=== PATIENT | female | born 1940 | race Caucasian/White ===

== ENCOUNTER 2017-05-06 07:10 | Day surgery (SDC) | payer MEDICARE, BC ==
[~2017-05-06 07:10] MED LIST: Midazolam 1 MG/ML 2 ML SDV ONE; Propofol 200 MG/20 ML SDV ONE; fentaNYL 100 MCG/2 ML SDV ONE
[2017-05-06] MEDS ORDERED: ceFAZolin 2 GM in Sodium Chloride 0.9% 50 ML IV ONE (07:15)
[2017-05-06] MEDS ORDERED: Bupivacaine 0.5% 50 ML MDV ONE (07:22)
[2017-05-06] MEDS ORDERED: Lidocaine 1% with EPINEPHrine 1:100,000 50 ML MDV ONE (07:22)
[2017-05-06] MEDS ORDERED: Dextrose 5%-Lactated Ringers 1,000 ML IV SCH (07:30)
[2017-05-06] MEDS ORDERED: ceFAZolin 2 GM in Sodium Chloride 0.9% 100 ML IV ONE (08:15)
[2017-05-06 11:13] VITALS: BP 131/79
[2017-05-06] MEDS ORDERED: Linezolid 200 MG/100 ML Bag IRR ONE (11:51)
--- NOTE | 2017-05-07 15:15 | OR ---
DATE OF PROCEDURE: 05/06/2017 PREOPERATIVE DIAGNOSIS: Dual-chamber cardiac pacemaker pulse generator at end of life. POSTOPERATIVE DIAGNOSES: 1. Dual-chamber cardiac pacemaker pulse generator at end of life. 2. Superficially-located pacemaker pocket at risk for breakdown and infection. OPERATIVE PROCEDURES: 1. Replacement and removal of dual-chamber cardiac pacemaker pulse generator (42512). 2. Relocation of pulse generator pocket (13362). ANESTHESIA: Local plus IV sedation. INDICATION FOR PROCEDURE: The patient presents with a dual-chamber cardiac pacemaker at end of life. Plan is to proceed with removal and replacement of the pulse generator. The leads had previously been tested and were related to be satisfactory. Potential risks including bleeding and infection were reviewed, and the patient wishes to proceed. DETAILS OF PROCEDURE: The patient was taken to the operating room and placed in a supine position. IV sedation was administered, after which the upper chest and neck areas were prepped and draped. The pulse generator was then anesthetized with 1% lidocaine mixed with Marcaine. A transverse incision was made. It was noted that the pulse generator pocket, at this point, was noted to be very thin and simply closing the present incision over the replaced pulse generator would likely be a quite high risk for infection. Given this, the pulse generator was mobilized upward and removed. A new pulse generator was then connected. This was the same model number as previously noted, this being a [employer] model number [id number]. The leads were once again confirmed per the [employer] registered diet technician to be satisfactory. Immediate adequate pacing and sensing functions were confirmed. At this point, the dissection behind the current pacemaker pocket was established using sharp dissection, followed by blunt dissection of the new pacemaker pocket, posterior and somewhat inferior to the current pocket. The area was irrigated with Zyvox-containing saline solution. The pulse generator was placed into the new pocket. This was then closed with layers of 3-0 and 4-0 Vicryl stitch deep and a 4-0 Vicryl subcuticular stitch. Dressing was applied. The patient was taken to the recovery room in a satisfactory condition. Marvel Zuleta MD /[id number]
== END 2017-05-06 11:40 | disposition home or self-care (01) ==
LOC: JP.SDS 07:10
PROVIDERS: ATTEND Surgery
DX: Z45.010 Encounter for checking and testing of cardiac pacemaker pulse generator [battery] (principal); E11.22 Type 2 diabetes mellitus with diabetic chronic kidney disease; I12.9 Hypertensive chronic kidney disease with stage 1 through stage 4 chronic kidney disease, or unspecified chronic kidney disease; N18.3 Chronic kidney disease, stage 3 (moderate); K21.9 Gastro-esophageal reflux disease without esophagitis; J45.909 Unspecified asthma, uncomplicated; Z95.0 Presence of cardiac pacemaker; Z90.49 Acquired absence of other specified parts of digestive tract; E03.9 Hypothyroidism, unspecified; F41.9 Anxiety disorder, unspecified; Z88.1 Allergy status to other antibiotic agents; Z88.8 Allergy status to other drugs, medicaments and biological substances
CPT/HCPCS: 33222; 33228; C1786; J0690; J2020; J2250; J2704; J3010; J7042; J7050

== ENCOUNTER 2019-05-30 20:04 | Emergency (ER) | payer MEDICARE ==
[2019-05-30 20:19] VITALS: BP 168/66; PULSE 88
[2019-05-30] MEDS ORDERED: Phenazopyridine 95 MG Tab PO ONE (20:52)
[2019-05-30] MEDS ORDERED: Cephalexin 250 MG Cap PO ONE (20:52)
--- NOTE | 2019-05-30 21:01 | EDM.PDOC ---
ED HPI GENERAL MEDICAL PROBLEM - General Chief Complaint: Genitourinary Problem Stated Complaint: POSSIBLE BLADDER INFECTION Time Seen by Provider: 05/30/19 20:45 Source of Information: Reports: Patient, Old Records History Limitations: Reports: No Limitations - History of Present Illness INITIAL COMMENTS - FREE TEXT/NARRATIVE: 78 yo female here with dysuria and frequency. No fever, nausea, or flank pain. Onset today. Onset: Today Onset Date: 05/30/19 Duration: Hour(s):, Getting Worse Location: Reports: Pelvis (urethral pain) Quality: Reports: Burning Severity: Moderate Improves with: Reports: None Worsens with: Reports: Other (time/urination) Context: Reports: Other (See HPI) Associated Symptoms: Reports: No Other Symptoms. Denies: Fever/Chills, Nausea/ Vomiting Treatments HELPER STEEL FABRICATION: Reports: Other (see below) (none) Bladder Pain Score (Numeric/FACES): 5 - Related Data Allergies Allergy/AdvReac Type Severity Reaction Status Date / Time amoxicillin Allergy Rash Verified 05/30/19 20:18 fluticasone Allergy Dizziness Verified 05/30/19 20:18 [From Flovent Diskus] naproxen Allergy Nausea Verified 05/30/19 20:18 albuterol AdvReac Dizziness Verified 05/30/19 20:18 ibuprofen AdvReac Nausea Verified 05/30/19 20:18 Home Meds: Home Meds Albuterol [Proair HFA] 2 puff INH Q4HR PRN 03/20/15 [History] Levothyroxine [Synthroid] 50 mcg PO ACBREAKFAST 03/20/15 [History] Montelukast Sodium [Singulair] 10 mg PO BEDTIME 03/20/15 [History] atorvaSTATin [Lipitor] 80 mg PO BEDTIME 03/20/15 [History] glipiZIDE [Glipizide] 2.5 mg PO DAILY 03/20/15 [History] Aspirin [Adult Low Dose Aspirin EC] 81 mg PO DAILY 05/05/17 [History] Budesonide [Pulmicort] 0.5 mg IH BID 05/05/17 [History] Cholecalciferol (Vitamin D3) [Vitamin D3] 2,000 unit PO DAILY 05/05/17 [History] Cranberry Juice Powder 2 tab PO DAILY 05/05/17 [History] Psyllium [Metamucil] 0.52 gm PO DAILY 05/05/17 [History] Triamcinolone Acetonide [Nasacort] 2 spray HOLLY BID 05/06/17 [History] Carvedilol 6.25 mg PO DAILY 05/30/19 [History] Famotidine [Pepcid] 20 mg PO DAILY 05/30/19 [History] Past Medical History HEENT History: Reports: Allergic Rhinitis, Cataract, Impaired Vision, Sinusitis , Other (See Below) Other HEENT History: wears glasses Cardiovascular History: Reports: Arrhythmia, Heart Murmur, High Cholesterol, Hypertension, Pacemaker, Other (See Below) Other Cardiovascular History: complete atrioventricular block Respiratory History: Reports: Asthma Gastrointestinal History: Reports: Colon Polyp, Diverticulosis, GERD, Hemorrhoids Genitourinary History: Reports: Chronic Renal Insuffiency, Pyelonephritis, Renal Calculus, Other (See Below) Other Genitourinary History: chronic kidney disease stage III BUILDING CODE INSPECTOR History: Reports: , Other (See Below) Other BUILDING CODE INSPECTOR History: uterine cysts Musculoskeletal History: Reports: Fracture, Osteoporosis, Other (See Below) Other Musculoskeletal History: left arm fracture as child Neurological History: Reports: CVA, TIA Other Neuro History: Believes she had a CVA/stroke at 37 years old Psychiatric History: Reports: Anxiety Endocrine/Metabolic History: Reports: Diabetes, Type II, Hypothyroidism - Infectious Disease History Infectious Disease History: Reports: Chicken Pox, Measles, Mumps Other Infectious Disease History: Lymes disease - Past Surgical History GI Surgical History: Reports: Cholecystectomy, Colonoscopy, EGD Social & Family History - Tobacco Use Smoking Status *Q: Never Smoker Second Hand Smoke Exposure: No - Caffeine Use Caffeine Use: Reports: Tea - Recreational Drug Use Recreational Drug Use: No ED ROS GENERAL - Review of Systems Review Of Systems: ROS reveals no pertinent complaints other than HPI. Constitutional: Denies: Fever, Chills GI/Abdominal: Denies: Nausea : Reports: Dysuria, Frequency Skin: Reports: No Symptoms ED EXAM, RENAL/ - Physical Exam Exam: See Below Exam Limited By: No Limitations General Appearance: Alert, WD/WN, No Apparent Distress Eye Exam: Bilateral Eye: Normal Inspection Ears: Normal External Exam, Normal Canal, Hearing Grossly Normal Nose: Normal Inspection, No Blood Throat/Mouth: Normal Inspection, Normal Lips, Normal Voice, No Airway Compromise Head: Atraumatic, Normocephalic Neck: Normal Inspection Respiratory/Chest: No Respiratory Distress, Lungs Clear, Normal Breath Sounds, No Accessory Muscle Use Cardiovascular: Regular Rate, Rhythm, No Edema Back Exam: Normal Inspection. No: CVA Tenderness (R), CVA Tenderness (L) Extremities: Normal Inspection Neurological: Alert, Oriented, CN II-XII Intact, Normal Cognition, No Motor/ Sensory Deficits Psychiatric: Normal Affect, Normal Mood Skin Exam: Warm, Dry, Intact, Normal Color, No Rash Course - Vital Signs Last Recorded V/S: Last Vital Signs Temp 36.0 C 05/30/19 20:29 Pulse 88 05/30/19 20:29 Resp 16 05/30/19 20:29 BP 168/66 H 05/30/19 20:29 Pulse Ox 97 05/30/19 20:29 - Orders/Labs/Meds Orders: Active Orders 24 hr Category Date Time Status CULTURE URINE [RM] Stat Lab 05/30/19 20:55 Received Labs: Laboratory Tests 05/30/19 Range/Units 20:38 Urine Color Red A (YELLOW) Urine Appearance Slightly cloudy A (CLEAR) Urine pH 5.5 (5.0-8.0) Ur Specific [place] <= 1.005 L (1.008-1.030) Urine Protein 30 H (NEGATIVE) mg/dL Urine Glucose (UA) Negative (NEGATIVE) mg/dL Urine Ketones Negative (NEGATIVE) mg/dL Urine Occult Blood Large H (NEGATIVE) Urine Nitrite Negative (NEGATIVE) Urine Bilirubin Negative (NEGATIVE) Urine Urobilinogen 0.2 (0.2-1.0) EU/dL Ur Leukocyte Esterase Small H (NEGATIVE) Urine RBC 10-20 H (0-5) Urine WBC 10-20 H (0-5) Ur Epithelial Cells Moderate Amorphous Sediment Not seen Urine Bacteria Moderate Urine Mucus Not seen Meds: Medications Discontinued Medications Generic Name Dose Route Start Last Admin Trade Name Freq PRN Reason Stop Dose Admin Cephalexin 500 mg 05/30/19 20:52 Keflex PO 05/30/19 20:53 ONETIME ONE Phenazopyridine HCl 190 mg 05/30/19 20:52 Urinary Pain Relief PO 05/30/19 20:53 ONETIME ONE Departure - Departure Time of Disposition: 20:58 Disposition: Home, Self-Care 01 Condition: Good Clinical Impression: Cystitis - Discharge Information *PRESCRIPTION DRUG MONITORING PROGRAM REVIEWED*: No *COPY OF PRESCRIPTION DRUG MONITORING REPORT IN PATIENT MERRICK: No Instructions: Urinary Tract Infection, Adult, [id number] Referrals: Leonora Yen MD [Primary Care Provider] - Additional Instructions: Take cephalexin as directed. Use AZO per package instructions for your discomfort. Drink ample fluids. Check with your doctor in 2-3 days to see if your culture suggests a need for a different antibiotic. Return for fever, vomiting, or flank pain. - My Orders Last 24 Hours: My Active Orders 05/30/19 20:55 CULTURE URINE [RM] Stat - Assessment/Plan Last 24 Hours: My Active Orders 05/30/19 20:55 CULTURE URINE [RM] Stat
== END 2019-05-30 21:24 | disposition home or self-care (01) ==
LOC: JP.ED 20:04
DX: N30.90 Cystitis, unspecified without hematuria (principal); E78.00 Pure hypercholesterolemia, unspecified; J45.909 Unspecified asthma, uncomplicated; I12.9 Hypertensive chronic kidney disease with stage 1 through stage 4 chronic kidney disease, or unspecified chronic kidney disease; E11.22 Type 2 diabetes mellitus with diabetic chronic kidney disease; N18.3 Chronic kidney disease, stage 3 (moderate); E03.9 Hypothyroidism, unspecified; F41.9 Anxiety disorder, unspecified; Z88.1 Allergy status to other antibiotic agents; Z88.8 Allergy status to other drugs, medicaments and biological substances; Z79.82 Long term (current) use of aspirin; Z79.899 Other long term (current) drug therapy; Z79.84 Long term (current) use of oral hypoglycemic drugs
CPT/HCPCS: 81001; 87086; 87088; 87186; 99283

== ENCOUNTER 2023-05-03 11:15 | Emergency (ER) | payer MEDICARE ==
[2023-05-03 12:58] LABS: BASOPHILS ABSOLUTE AUTO 0.04 K/uL (0.00-0.10); BASOPHILS PERCENT AUTO 0.4 % (0.1-1.3); EOSINOPHILS ABSOLUTE AUTO 0.13 K/uL (0.00-0.40); EOSINOPHILS PERCENT AUTO 1.3 % (0.0-5.4); HEMATOCRIT 38.3 % (34.3-46.0); HEMOGLOBIN 13.3 g/dL (11.2-15.5); IMMATURE GRAN ABSOLUTE AUTO 0.03 K/uL (0.00-0.23); IMMATURE GRAN PERCENT AUTO 0.3 % (0.0-0.7); LYMPHOCYTES ABSOLUTE AUTO 0.94 K/uL (0.8-3.3); MEAN CORPUSCULAR HEMOGLOBIN 29.6 pg (31.6-35.5); MEAN CORPUSCULAR HGB CONC 34.7 g/dL (31.6-35.5); MEAN CORPUSCULAR VOLUME 85.1 fL (81.4-99.0); MONOCYTES ABSOLUTE AUTO 0.99 K/uL (0.20-0.90); MONOCYTES PERCENT AUTO 9.5 % (3.3-12.6); NEUTROPHILS ABSOLUTE AUTO 8.27 K/uL (1.0-7.6); NEUTROPHILS PERCENT AUTO 79.5 % (40.0-78.1); PLATELET COUNT,PLT 273 K/uL (130-375); WHITE BLOOD CELL COUNT,WBC 10.4 K/uL (3.2-11.0)
[2023-05-03 13:19] LABS: A/G RATIO 0.7 (1.2-2.2); ALANINE AMINOTRANSFERASE,ALT 20 U/L (12-78); ALBUMIN 2.9 g/dL (3.4-5.0); ALKALINE PHOSPHATASE 85 U/L (46-116); ASPARTATE AMNIOTRANSFERASE,AST 23 U/L (15-37); BILIRUBIN DIRECT 0.64 mg/dL (0.0-0.2); BILIRUBIN TOTAL 4.2 mg/dL (0.2-1.0); BLOOD UREA NITROGEN,BUN 8 mg/dL (7-18); CALCIUM 8.6 mg/dL (8.5-10.1); CARBON DIOXIDE,CO2 25 mmol/L (21-32); CHLORIDE,CL 98 mmol/L (100-108); CREATININE 0.8 mg/dL (0.6-1.0); EST CRCL DRUG DOSING (CG) 40.29 mL/min; ESTIMATED GFR 74 mL/min (>60); GLUCOSE RANDOM 124 mg/dL (74-106); PROTEIN TOTAL,TP 6.8 g/dL (6.4-8.2); SODIUM,NA 133 mmol/L (140-148)
[2023-05-03] MEDS ORDERED: Sodium Chloride 0.9% 10 ML Syringe FLUSH PRN (13:33)
[2023-05-03] MEDS ORDERED: Sodium Chloride 0.9% 1,000 ML IV ONE (13:33)
[2023-05-03] MEDS ORDERED: Sodium Chloride 0.9% 50 ML IV ONE (13:59)
[2023-05-03] MEDS ORDERED: Iopamidol 612 MG/ML 100 ML Bottle IV ONE (13:59)
[2023-05-03] MEDS ORDERED: Sodium Chloride 0.9% 10 ML Syringe FLUSH ONE (13:59)
[2023-05-03 14:33] VITALS: BP 154/71; PULSE 64
== END 2023-05-03 16:18 | disposition home or self-care (01) ==
LOC: JP.ED 11:15
DX: K57.32 Diverticulitis of large intestine without perforation or abscess without bleeding (principal); R17 Unspecified jaundice; E11.22 Type 2 diabetes mellitus with diabetic chronic kidney disease; I12.0 Hypertensive chronic kidney disease with stage 5 chronic kidney disease or end stage renal disease; N18.30 Chronic kidney disease, stage 3 unspecified; E03.9 Hypothyroidism, unspecified; Z86.73 Personal history of transient ischemic attack (TIA), and cerebral infarction without residual deficits; Z88.0 Allergy status to penicillin; Z88.8 Allergy status to other drugs, medicaments and biological substances; Z88.6 Allergy status to analgesic agent; Z79.84 Long term (current) use of oral hypoglycemic drugs; Z79.82 Long term (current) use of aspirin; Z79.899 Other long term (current) drug therapy
CPT/HCPCS: 36415; 74177; 80053; 82248; 83690; 85025; 96360; 99284; J3490; J7030; Q9967